=== PATIENT | female | born 1985 | race Two or more races ===

== ENCOUNTER 2023-12-30 23:35 | Emergency (ER) | payer OTHER, SELFPAY ==
[2023-12-30 23:44] VITALS: BP 114/62; BP 126/68; PULSE 78; RESP 15; TEMP 37.1; O2SAT 98; BMI 30.9
--- NOTE | 2023-12-30 23:45 | ED_ITS ---
HPI - Allergic Reaction General Chief complaint: Allergic Reaction Stated complaint: allergic reaction Source: patient and EMS Mode of arrival: EMS Limitations: no limitations History of Present Illness ED Provider: Dr. Benita Coulter HPI narrative: Patient comes to the emergency room complaining of an allergic reaction to shrimp. 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 Patient states that the last time she had an allergic reaction was 4 years ago. Patient states that she was hoping that she would no longer be allergic to shrimp, try eating it and once again she became diaphoretic, flushed, had hives head to toe. Patient states she has no oropharyngeal swelling, no difficulty breathing, no chest pain. Patient took 1 tablet of Benadryl at home. However, the hives kept getting worse. EMS arrived, gave her a dose of Zofran and brought her to the emergency room. Give patient states that she does not have EpiPen at home, states that the last time she used it was 4 years ago and they never got refilled. Related Data Previous Rx's ?Medication ?Instructions ?Recorded epinephrine 0.3 mg/0.3 mL 0.3 mg (0.3 mL) IM Q4H PRN 12/31/23 injection, auto-injector (EpiPen) anaphylaxis #2 ea Allergies Allergy/AdvReac Type Severity Reaction Status Date / Time shrimp Allergy Anaphylaxis Verified 12/30/23 23:47 Review of Systems Review of Systems: Constitutional : No Weight loss, No Fever, No Chills, No Night Sweats, No Fatigue, No Malaise ENT/Mouth : No Hearing loss, No Ear Pain, No Nasal Congestion, No Sinus Pain, No Hoarseness, No sore throat, No Rhinorrhea, No Swallowing Difficulty Eyes: No Eye Pain, No Swelling, No Redness, No Foreign Body, No Discharge, No Vision Changes Cardiovascular : No Chest Pain, No SOB, No Dyspnea on Exertion, No Orthopnea, No Edema, No Palpitations Respiratory : No Cough, No Sputum, No Wheezing, No Smoke Exposure, No Dyspnea Gastrointestinal : No Nausea, No Vomiting, No Diarrhea, No Constipation, No abdominal Pain, No Hematochezia, No Melena Genitourinary : no irregular bleeding, No Dysuria, No Urinary Frequency, No Hematuria, No Urinary Incontinence, No Urgency, No Flank Pain, No Urinary Flow Changes, No Hesitancy Musculoskeletal : No joint pain, No Myalgias, No Joint Swelling Skin : Complaining of flushing, hives head to toe, itchiness Neuro : No Weakness, No Numbness, No Paresthesias, No Loss of Consciousness, No Dizziness, No Headache Psych : No Anxiety/Panic, No Depression, No SI/HI/AH/VH, No Social Issues, Heme/Lymph: No Bruising, No Bleeding,No Lymphadenopathy Endocrine : No Polyuria, No Polydipsia, No Temperature Intolerance PMFSH Social History Social History Advance Directives: No Advance Directives Information Provided: Yes Physical Exam ED Vital Signs: Vital Signs - 24 hr 12/30/23 23:44 Temperature 98.7 F Pulse Rate 78 Respiratory Rate 15 Blood Pressure 114/62 Pulse Oximetry 98 Oxygen Delivery Method Room Air BMI result Body Mass Index 30.9 Const Other: Appearance: Alert. Oriented X3. No acute distress. Eyes: Pupils equal, round and reactive to light. ENT: Pharynx normal. No angioedema Neck: Normal inspection. Neck supple. No lymph nodes noted. No crepitus CVS: Normal heart rate and rhythm. Pulses normal. Normal S1 and S2 Respiratory: No respiratory distress. Breath sounds normal. No Wheezing. No rales Abdomen: Soft and nontender. No rigidity. No distention. Skin: Patient has diffuse hives and scratches from scratching with her fingernails Extremities: No lower extremity edema. No Lacerations. No Rash Neuro: Oriented X 3. No motor deficit. No sensory deficit. Moving all extremities. No slurred speech. CN 2 through 12 grossly intact Psych: calm, cooperative, normal affect Course Course Course Narrative: -patient receiving IV fluids, diphenhydramine 50 mg IV, famotidine and Solu- Medrol. Medications Administered Discontinued Medications Generic Name Dose Route Start Last Admin Trade Name Freq PRN Reason Stop Dose Admin Diphenhydramine HCl 50 mg 12/30/23 23:44 12/30/23 23:53 Diphenhydramine Hcl 50 Mg/Ml Vial IVPUSH 12/30/23 23:45 50 mg ONCE ONE Administration Famotidine 20 mg 12/30/23 23:44 12/30/23 23:53 Famotidine/Pf 20 Mg/2 Ml Vial IVPUSH 12/30/23 23:45 20 mg ONCE ONE Administration Sodium Chloride 1,000 mls @ 999 mls/hr 12/30/23 23:44 12/30/23 23:53 Ns IVCONT 12/31/23 00:44 999 mls/hr .Q1H1M ONE Administration Methylprednisolone Sodium Succinate 125 mg 12/30/23 23:44 12/30/23 23:53 Methylprednisolone Sod Succ 125 Mg/2 Ml Vial IVPUSH 12/30/23 23:45 125 mg ONCE ONE Administration Medical Decision Making Medical Decision Making MDM Narrative: -after the IV medication mentioned above, patient feeling much better, hives nearly resolved -lung exam prior to discharge no wheezing, clear, normal air movement, no angioedema. Differential Diagnosis Differential Diagnoses: The differential diagnosis associated with the presentation includes (Allergic reaction to food, hypersensitivity reaction) Admission/Observation Consideration of admission/observation: Escalation of care including admission/observation considered (Given patient's initial presentation, observation was considered) Critical Care Time Critical Care Time Critical Care Time: Yes Total Critical Care Time: 45 Attestation: I have personally provided critical care time. Time includes review of lab data, radiology results, discussion with consultants, and monitoring for potential decompensation. Intervention performed as documented. Discharge Plan Discharge Clinical Impression: Allergic reaction Patient Disposition: Home, Self-Care Instructions: General Allergic Reaction (ED) Additional Instructions: Please follow-up with your primary care physician tomorrow. If you have any worsening or new symptoms, please return to the emergency room or call 911 Prescriptions: New epinephrine [EpiPen] 0.3 mg/0.3 mL auto-injector 0.3 mg IM Q4H PRN (Reason: anaphylaxis) Qty: 2 0RF Print Language: [place]
[2023-12-30] MEDS: diphenhydrAMINE HCL 50 MG/ML VIAL IVPUSH (23:53)
[2023-12-30] MEDS: 0.9 % Sodium Chloride 1,000 ML 999 ML IVCONT (23:53)
[2023-12-30] MEDS: Famotidine/PF 20 MG/2 ML VIAL IVPUSH (23:53)
[2023-12-30] MEDS: methylPREDNISolone Sod Succ 125 MG/2 ML VIAL IVPUSH (23:53)
--- NOTE | 2023-12-31 02:29 | PC.NURSE ---
pt biba from home after eating shrimp last night around 1900. hives appeeared around 2200 and pt took benadryl at 2220. pt called ems when she started vomiting as hx of anaphylactic reaction to shrimp. on arrival airway patent. iv established via ems. ivf hung and pt medicated per aug. hives improved on skin, pt denies itchy skin, itchy throat, diff breathing. vss. airway patent. pt is axox4 ambulatory with steady gait. d/c with pts [address] pt home. pt educated on use of epi pen and to return to the ed if sx worsen or pt experiences diff breathing. pt verbalizes understanding d/c instructions.
[2023-12-31 02:35] VITALS: BP 109/62; PULSE 89; RESP 15; TEMP 36.9; O2SAT 98
== END 2023-12-31 02:35 | disposition home or self-care (01) ==
PROVIDERS: Emergency Provider Emergency Medicine
DX: T78.1XXA Other adverse food reactions, not elsewhere classified, initial encounter (principal); L50.9 Urticaria, unspecified; X58.XXXA Exposure to other specified factors, initial encounter
CPT/HCPCS: 96361; 96374; 96375; 99283; 99284; J1200; J2919